=== PATIENT | female | born 1990 | race Caucasian/White ===

== ENCOUNTER 2016-08-31 16:12 | Emergency (ER) | payer OTHER ==
[2016-08-31 16:22] VITALS: BP 125/64; PULSE 118; TEMP 98.5; BMI 30.4
--- NOTE | 2016-08-31 19:04 | PDOC ---
History of Present Illness - General Chief Complaint: Cold Symptoms Stated Complaint: COLD SYMPTOMS Time Seen by Provider: 08/31/16 17:29 History Source: Patient Exam Limitations: No Limitations - History of Present Illness Initial Comments: 08/31/16 18:59 Chief complaint: Nasal congestion, generalized body aches and sore throat since last night History of present illness: Patient is a 25 year old female 24 weeks 1, with history of asthma, anemia, and right wrist JRA here today complaining of nasal congestion with yellowish green nasal discharge, sore throat, and generalized body aches since last night. Patient reports that earlier today she left work due to having a temp of 101 at 10:30 AM patient went home did not take any Tylenol and presently patient does not have a fever. Patient denies any shortness of breath or difficulty swallowing. Patient reports having minimal dry cough no wheezing. He denies any vomiting or diarrhea. 08/31/16 19:00 Timing/Duration: getting worse Severity: moderate Associated Symptoms: reports: cough (minimal dry ), fever/chills (today earlier) , other (sore throat, and generalized MS pain since last night ) Past History - Past Medical History Allergies/Adverse Reactions: Allergies Allergy/AdvReac Type Severity Reaction Status Date / Time guaifenesin [From Robitussin] Allergy Hives Verified 08/31/16 16:22 mushroom Allergy Hives Verified 08/31/16 16:22 Home Medications: Ambulatory Orders Albuterol Sulfate Inhaler - [Ventolin HFA Inhaler -] 2 inh PO Q4H PRN #1 inh 10/12 Anemia: Yes Asthma: Yes Other medical history: ARTHRITIS R WRIST - Psycho/Social/Smoking Cessation Hx Suicidal Ideation: No Smoking History: Never smoked Hx Alcohol Use: No Drug/Substance Use Hx: No Substance Use Type: None Review of Systems - Review of Systems Able to Perform ROS?: Yes Constitutional: No: Symptoms Reported HEENTM: Yes: Nose Congestion (with yellowish, green discharge), Throat Pain Respiratory: Yes: Cough (minimal dry ). No: Shortness of Breath, SOB with Exertion, SOB at Rest, Stridor, Wheezing, Productive cough Cardiac (ROS): No: Symptoms Reported ABD/GI: No: Symptoms Reported : No: Symptoms Reported Musculoskeletal: Yes: Other (generalized bodyaches) Integumentary: No: Symptoms Reported Neurological: No: Symptoms reported *Physical Exam - Vital Signs Last Vital Signs Temp Pulse Resp BP Pulse Ox 98.5 F 118 H 20 125/64 97 08/31/16 16:19 08/31/16 16:19 08/31/16 16:19 08/31/16 16:19 08/31/16 16:19 - Physical Exam General Appearance: Yes: Appropriately Dressed HEENT: positive: TMs Normal, Tonsillar Erythema (with no uvular deviation ), Nasal Congestion, Rhinorrhea (yellowish, green ). negative: Pharyngeal Erythema , Tonsillar Exudate, Sinus Tenderness Neck: positive: Lymphadenopathy (R), Lymphadenopathy (L) Respiratory/Chest: positive: Lungs Clear, Normal Breath Sounds. negative: Chest Tender, Respiratory Distress Cardiovascular: positive: Regular Rhythm, Regular Rate, S1, S2 Integumentary: positive: Normal Color Neurologic: positive: Alert, Normal Response, Responsive Medical Decision Making - Medical Decision Making 08/31/16 19:03 Patient is a 25 year old female 24 weeks 1, with history of asthma, anemia, and right wrist JRA here today complaining of nasal congestion with yellowish green nasal discharge, sore throat, and generalized body aches since last night. Patient reports that earlier today she left work due to having a temp of 101 at 10:30 AM patient went home did not take any Tylenol and presently patient does not have a fever. Patient denies any shortness of breath or difficulty swallowing. Patient reports having minimal dry cough no wheezing. He denies any vomiting or diarrhea. Rule out influenza A or B Rule out strep throat influenza like illness Plan: Throat C&S rapid negative Influenza a and B rapid negative Acetaminophen 650 mg by mouth now loratadine 10 mg daily follow up with PCP does not have pump at home ran out albuterol HFA 2 puffs every 4 hrs prn wheezing/sob 08/31/16 19:09 08/31/16 19:10 08/31/16 19:53 08/31/16 19:59 *DC/Admit/Observation/Transfer Diagnosis at time of Disposition: Influenza-like illness - Discharge Dispostion Disposition: HOME Condition at time of disposition: Stable - Referrals Referrals: STAFF,NOT ON [Primary Care Provider] - - Patient Instructions Additional Instructions: Take a lot of fluids and rest Make take Claritin 10 mg daily for nasal congestion may purchase over-the- counter is safe during Follow-up with your primary care provider within the next couple of days Return to emergency room if any difficulty breathing or swallowing You may take acetaminophen or Tylenol as needed as directed by home school teacher for body aches or fever Patient voiced understanding of discharge instructions and all questions were answered
[2016-08-31] MEDS ORDERED: ACETAMINOPHEN 650 MG/20.3 ML ORAL SOLUTION (CUPS) PO ONE (19:10)
[2016-08-31] MEDS ORDERED: ACETAMINOPHEN 650 MG/20.3 ML ORAL SOLUTION (CUPS) ONE (19:14)
== END 2016-08-31 19:57 | disposition home or self-care (01) ==
LOC: JERFT 16:12
DX: O98.512 Other viral diseases complicating pregnancy, second trimester (principal); J11.1 Influenza due to unidentified influenza virus with other respiratory manifestations; Z3A.24 24 weeks gestation of pregnancy
CPT/HCPCS: 87070; 87430; 87804; 99281-25